=== PATIENT | male | born 1975 | race Caucasian/White ===

== ENCOUNTER 2021-12-24 13:53 | Inpatient (IN) | payer OTHER, SELFPAY ==
[2021-12-24] VITALS (7 sets, daily range): BP systolic 122–156; BP diastolic 61–93; PULSE 67–94; RESP 17–20; TEMP 36.6–36.9; O2SAT 94–100; BMI 32.2; BMI 33.0
--- NOTE | ~2021-12-24 | CT_ITS ---
EXAMINATION: CT brain wo con DATE: 12/24/2021 14:24 INDICATION: Left facial weakness. TECHNIQUE: Computed tomography (CT) of the head was performed without intravenous contrast. The mA wa s adjusted according to patient size. Iterative reconstruction technique was employed. The dose-lengt h product was 605.33 mGy-cm. COMPARISON: None FINDINGS: There is no intracranial hemorrhage, acute infarction, or abnormal intracranial mass lesion . The ventricles are normal in size. The orbits are normal. There is mild mucosal thickening in the p aranasal sinuses. The mastoid air cells are normal. IMPRESSION: 1. Normal brain. Reviewed, dictated and finalized at location A. CHIEF'S AIDE IMPRESSION: 1. Normal brain.
--- NOTE | 2021-12-24 14:49 | ED.NEUROSD ---
HPI - Neuro Symptoms/Deficit General Chief Complaint: Neuro Symptoms/Deficit Stated Complaint: Left sided face droop Time Seen by Provider: 12/24/21 14:39 Source: patient and family Mode of arrival: ambulatory Limitations: no limitations History of Present Illness HPI Narrative: Patient is 46 years old white male presented to the ED with sudden onset of tingling numbness of left side of the face, abnormal smile, unable to close left eyelid. Patient denies any similar symptoms anywhere else in his body. The above symptoms started last night. History of bipolar, patient denies any smoking, drinking or using drugs. Patient reports some meth use 1 week ago. Last Covid vaccine 6 months ago. Patient denies any fever, chills, nausea, vomiting, shortness of breath, chest pain, headache. Related Data Allergies Allergy/AdvReac Type Severity Reaction Status Date / Time NKDA Allergy Mild Uncoded 03/14/09 14:45 Review of Systems Review of Systems: CONSTITUTIONAL: Denies fever, chills, or sweats. EYES: Denies visual changes, redness, or discharge. ENT: Denies rhinorrhea, congestion, sore throat, or otalgia. CARDIOVASCULAR: Denies chest pain, palpitations, or edema. RESPIRATORY: Denies cough or dyspnea. GASTROINTESTINAL: Denies abdominal pain, nausea, vomiting, or diarrhea. GENITOURINARY: Denies dysuria or hematuria. SKIN: Denies rash or itching. MUSCULOSKELETAL: Denies back pain, joint pain, or myalgia. NEUROLOGIC: Denies headache, numbness, or weakness. PSYCHIATRIC: Denies anxiety or depression. Exam Narrative: General appearance: Well-developed, well-nourished Skin: Normal color Head: Normocephalic, nontraumatic Eyes: Clear conjunctiva ENT: Oropharynx normal, ears normal, nose normal Neck: Supple, nontender Chest and respiratory: Airway patent, no respiratory distress, no accessory muscle use Heart: Regular rate/rhythm Abdomen: Soft, nontender, no organomegaly, quiet bowel sounds Vascular: Normal peripheral pulses, normal capillary refill. Musculoskeletal: Normal range of motion, nontender back Neurologic: Alert and oriented ?3, left facial paralysis which include forehead and lower face, inability to smile on the left side, inability to close eyelids on the left side, loss of nasolabial fold on the left side Course Course Emergency Course: Stable Vital Signs Vital signs: Vital Signs Temperature 36.9 C 12/24/21 14:02 Pulse Rate 90 12/24/21 14:02 Respiratory Rate 18 12/24/21 14:02 Blood Pressure 125/82 12/24/21 14:02 Pulse Oximetry 97 12/24/21 14:02 Temperature 36.9 C 12/24/21 14:02 Pulse Rate 90 12/24/21 14:02 Respiratory Rate 18 12/24/21 14:02 Blood Pressure 125/82 12/24/21 14:02 Pulse Oximetry 97 12/24/21 14:02 MDM - Neuro Symptoms/Deficit MDM Narrative Medical decision making narrative: Patient presents with sudden onset of left upper and left lower facial paralysis consistent with dyspepsia. No other neurologic deficits anywhere else. Lab Data Result diagrams: 12/24/21 14:53 12/24/21 14:53 Labs: Lab Results 12/24/21 12/24/21 Range/Units 14:53 14:53 WBC 9.9 (4.5-10.0) K/mm3 RBC 5.42 (4.6-6.20) M/mm3 Hgb 17.4 (14.0-18.0) g/dL Hct 47.5 (42.0-52.0) % MCV 87.6 (80-100) fl MCH 32.1 (26-34) pg MCHC 36.6 H (32-36) g/dl RDW 12.1 (11.5-14.5) % Plt Count 226 (150-375) k/mm3 MPV 10.7 H (7.4-10.4) fl Immature Gran % (Auto) 0.4 (0-0.5) % Neut % (Auto) 74.9 H (45.5-73.1) % Lymph % (Auto) 15.8 L (18.3-44.2) % [place] % (Auto) 7.2 (2.6-8.5) % Eos % (Auto) 0.9 (0-4.4) % Baso % (Auto) 0.8 (0.2-1.2) % Lymph # (Auto) 1.5
[2021-12-24 14:59] LABS: Basophils Absolute Auto 0.1 K/mm3 (0.0-0.1); Basophils Percent Auto 0.8 % (0.2-1.2); Eosinophils Absolute Auto 0.1 K/mm3 (0-0.3); Eosinophils Percent Auto 0.9 % (0-4.4); Hematocrit 47.5 % (42.0-52.0); Hemoglobin 17.4 g/dL (14.0-18.0); Immature Granulocyte Absolute 0.04 K/mm3 (0.00-0.031); Immature Granulocyte Percent A 0.4 % (0-0.5); Lymphocytes Absolute Auto 1.56 K/mm3 (0.9-3.2); Lymphocytes Percent Auto 15.8 % (18.3-44.2); Mean Corpuscular HGB Conc 36.6 g/dl (32-36); Mean Corpuscular Hemoglobin 32.1 pg (26-34); Mean Corpuscular Volume 87.6 fl (80-100); Mean Platelet Volume 10.7 fl (7.4-10.4); Monocytes Absolute Auto 0.7 K/mm3 (0.1-0.6); Monocytes Percent Auto 7.2 % (2.6-8.5); Neutrophils Absolute Auto 7.4 K/mm3 (1.3-6.7); Neutrophils Percent Auto 74.9 % (45.5-73.1); Platelet Count Result 226 k/mm3 (150-375); Red Blood Count 5.42 M/mm3 (4.6-6.20); Red Cell Distribution Width 12.1 % (11.5-14.5); White Blood Count 9.9 K/mm3 (4.5-10.0)
[2021-12-24 15:08] LABS: Alanine Aminotransferase 29 U/L (4-50); Alkaline Phosphatase 116 U/L (38-126); Anion Gap 5 mmol/L (8-16); Aspartate Amino Transferase 26 U/L (17-59); Bilirubin,Total 0.5 mg/dL (0.2-1.3); Blood Urea Nitrogen 15 mg/dL (9-20); Calcium 9.2 mg/dL (8.4-10.2); Carbon Dioxide 23 mmol/L (22-30); Chloride 98 mmol/L (98-107); Estimated CRCL calculation 116 ml/min; Estimated Glomerular Filt Rate > 60; Glucose 374 mg/dL (65-110); Potassium 4.4 mmol/L (3.4-5.0); Sodium 126 mmol/L (137-145)
[2021-12-24] MEDS: SODIUM CHLORIDE 0.9% IV 1,000 ML 999 ML IV CONT (15:37)
--- NOTE | 2021-12-24 15:49 | PC.NURSE ---
pt states he has hx of dm in the past. also admits to taking crystal meth 7days ago.
--- NOTE | 2021-12-24 16:07 | PM.IMHP ---
H&P: HPI History of Present Illness Date/Time: 12/24/21 16:07 this is a 46-year-old male patient has a past medical history obesity and diabetes. The patient has had a gastric bypass and has been taken off of his medication. The patient stated that he has been controlling his blood sugars with diet only. The patient stated that his blood sugars were running in the 200s and he was taken off the medication that he used to be taking for diabetes. The patient came to the emergency room today with sudden onset of tingling of left side of the face abnormal spinal and unable to close the left eyelid. The patient denies any similar symptoms else in his body. He has no focal weakness. Symptoms started last night. Patient does have a history bipolar disorder. The patient does take medication bipolar disorder. The patient does use crystal methamphetamines in the last time the use illicit drugs was 1 week ago. The patient states that he has low testosterone and feels tired due to the low testosterone. Head CT was read as normal brain. Patient's sodium level was 126. Patient's glucose is noted to be 374 with the A1c of 10.5. The patient was found to be positive for COVID-19. Initially the patient was given IV fluid and started on prednisone. The patient is being admitted to observation status on the date of service of 12/24/2021. Chief Complaint: Left facial droop Review of Systems Review of Systems: All systems reviewed & are unremarkable except as noted in HPI and below Constitutional: Constitutional: Reports as per HPI and Reports no additional constitutional complaints Eyes: Eyes: Reports as per HPI and Reports no additional eye complaints ENT: Reports system reviewed and no additional complaints, except as documented and Reports Normal hearing present Cardiovascular: Cardiovascular: Reports no additional cardiovascular complaints Respiratory: Respiratory: Reports no additional respiratory complaints and Reports no additional respiratory complaints Gastrointestinal: Gastrointestinal: Reports as per HPI and Reports no additional gastrointestinal complaints Musculoskeletal: Musculoskeletal: Reports no additional musculoskeletal complaints Integumentary/Breasts: Skin/Breast: Reports system reviewed and no additional complaints, except as docu and Reports as per HPI Neurologic: Reports system reviewed and no additional complaints, except as documented, Reports as per HPI and Reports Normal hearing present Psychiatric: Psychiatric: Reports no additional psychiatric complaints and Reports as per HPI Endocrine: Endocrine: Reports no additional endocrine complaints Hematologic/Lymphatic: Hematologic/Lymphatic: Reports no additional hematologic/lymphatic complaints Allergic/Immunologic: Allergic/Immunologic: Reports no additional allergic/immunologic complaints [facility] Past Medical History Medical History (Updated 12/24/21 @ 18:50 by Radha Mena NP) Bipolar 1 disorder, depressed DM2 (diabetes mellitus, type 2) Low testosterone Surgical History Surgical History (Updated 12/24/21 @ 16:09 by Radha Mena NP) H/O arthroscopic knee surgery H/O hand surgery History of ankle surgery 2 ties and fusion Hx of gastric bypass Family History Family History Father Hypertension Acute myocardial infarction Cerebrovascular accident Alcoholism Social History Social History (Updated 12/24/21 @ 18:24 by Radha Mena NP) Social History: The patient tells me that his is currently living in [place] near [facility]. He has S 1 child. He lives with family. 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 He desires to have his mother as power hydroelectric plant structural engineer for healthcare. He currently is not employed. He denies any alcohol tobacco and marijuana. Code status full code Meds Home Medications and Allergies
[2021-12-24 16:23] LABS: Hemoglobin A1C 10.5 % (<5.7)
[2021-12-24 16:25] LABS: Thyroid Stimulating Hormone 0.528 uIU/mL (0.465-4.680)
[2021-12-24] MEDS: predniSONE 20 MG TABLET 60 MG PO (16:53)
[2021-12-24] MEDS: SODIUM CHLORIDE 0.9% IV 1,000 ML 200 ML IV CONT ×2 (16:54→23:37)
[2021-12-24 17:00] LABS: SARS-CoV-2 RNA PCR Positive
[2021-12-24 17:10] LABS: Glucose Point of Care 319 mg/dl (65-105)
[2021-12-24] MEDS: INSULIN ASPART (*BKC) 100 UNITS/ML SUB-Q (17:12)
[2021-12-24 19:18] LABS: Sodium Urine Random 61 meq/L
--- NOTE | 2021-12-24 20:14 | PC.NURSE ---
Report received from JENNIFER Tanner. Assumed care of patient at this time.
[2021-12-24 20:17] LABS: Anion Gap 4 mmol/L (8-16); Blood Urea Nitrogen 14 mg/dL (9-20); Calcium 9.1 mg/dL (8.4-10.2); Carbon Dioxide 24 mmol/L (22-30); Chloride 102 mmol/L (98-107); Estimated CRCL calculation 131 ml/min; Estimated Glomerular Filt Rate > 60; Glucose 358 mg/dL (65-110); Potassium 4.6 mmol/L (3.4-5.0); Sodium 130 mmol/L (137-145)
--- NOTE | 2021-12-24 21:55 | PC.NURSE ---
Patient stated IV pump was constantly beeping, IV okay, not tender and flushes easily, good blood return. New IV placed in right FA, 20gauge and IV fluids switched to that new IV upon request.
[2021-12-25] MEDS: ZOLPIDEM TARTRATE (*CRX) 5 MG TABLET PO ×2 (00:13→20:07)
[2021-12-25] MEDS: SODIUM CHLORIDE 0.9% IV 1,000 ML 200 ML IV CONT ×2 (04:45→12:13)
[2021-12-25 06:38] VITALS: BP 105/61; PULSE 62; RESP 16; TEMP 36.3; O2SAT 97
[2021-12-25 07:58] LABS: Basophils Absolute Auto 0.1 K/mm3 (0.0-0.1); Basophils Percent Auto 0.7 % (0.2-1.2); Eosinophils Absolute Auto 0.1 K/mm3 (0-0.3); Eosinophils Percent Auto 0.8 % (0-4.4); Hematocrit 45.5 % (42.0-52.0); Hemoglobin 15.7 g/dL (14.0-18.0); Immature Granulocyte Absolute 0.07 K/mm3 (0.00-0.031); Immature Granulocyte Percent A 0.7 % (0-0.5); Lymphocytes Absolute Auto 1.72 K/mm3 (0.9-3.2); Mean Corpuscular HGB Conc 34.5 g/dl (32-36); Mean Corpuscular Hemoglobin 31.1 pg (26-34); Mean Corpuscular Volume 90.1 fl (80-100); Mean Platelet Volume 10.5 fl (7.4-10.4); Monocytes Absolute Auto 0.7 K/mm3 (0.1-0.6); Monocytes Percent Auto 6.1 % (2.6-8.5); Neutrophils Absolute Auto 8.1 K/mm3 (1.3-6.7); Neutrophils Percent Auto 75.7 % (45.5-73.1); Platelet Count Result 211 k/mm3 (150-375); Red Blood Count 5.05 M/mm3 (4.6-6.20); Red Cell Distribution Width 11.9 % (11.5-14.5); White Blood Count 10.7 K/mm3 (4.5-10.0)
[2021-12-25 08:14] LABS: Lactic Acid Reflex 0.8 mmol/L (0.7-2.1)
[2021-12-25 08:25] LABS: Alanine Aminotransferase 24 U/L (4-50); Albumin Level 3.7 g/dL (3.5-5.1); Alkaline Phosphatase 88 U/L (38-126); Anion Gap 3 mmol/L (8-16); Aspartate Amino Transferase 19 U/L (17-59); Bilirubin,Total 0.6 mg/dL (0.2-1.3); Blood Urea Nitrogen 13 mg/dL (9-20); CRP 0.8 mg/dL (<1.0); Calcium 8.9 mg/dL (8.4-10.2); Carbon Dioxide 26 mmol/L (22-30); Chloride 103 mmol/L (98-107); Estimated CRCL calculation 157 ml/min; Estimated Glomerular Filt Rate > 60; Glucose 244 mg/dL (65-110); Lactate Dehydrogenase 357 U/L (313-618); Lipase 316 U/L (23-300); Sodium 132 mmol/L (137-145)
[2021-12-25 08:36] LABS: Glucose Point of Care 290 mg/dl (65-105)
[2021-12-25] MEDS: INSULIN ASPART (*BKC) 100 UNITS/ML SUB-Q ×3 (09:10→16:51)
[2021-12-25 09:51] VITALS: BP 120/72; PULSE 70; RESP 16; TEMP 36.3; O2SAT 94
--- NOTE | 2021-12-25 09:53 | PM.IMPN ---
Progress Note: A&P Assessment and Plan (1) Herron's palsy: Code(s): G51.0 - Herron's palsy Status: Acute Assessment and Plan: -CT brain normal -prednisone and valacyclovir -no other neurological deficits (2) DM2 (diabetes mellitus, type 2): Code(s): E11.9 - Type 2 diabetes mellitus without complications Status: Chronic Assessment and Plan: -Patient stated that he had diabetes in the past and had a gastric bypass and was taken off of his diabetic medications. -A1c is 10.5. His blood sugars have been in the 300s. -Now on prednisone this may increase his blood sugars even more. -sliding scale insulin. I started him on glyburide as he has had a gastric bypass. If I had started him on metformin it may decrease his B12 levels. Patient also had complained of a diabetic medication that upset his stomach. This is why he did not take any diabetic medication in the past. -perinatal educator and dietitian have been consulted. (3) Bipolar 1 disorder, depressed: Code(s): F31.9 - Bipolar disorder, unspecified Status: Chronic Assessment and Plan: -Continue with his home medications. -requesting psych consult, do not think this is neccessary inpatient but will try to set up follow up with [place] on discharge (4) COVID: Code(s): U07.1 - COVID-19 Status: Acute Assessment and Plan: -Contact and droplet isolation. The patient does not complain of any respiratory problems at this time. (5) Hyponatremia: Code(s): E87.1 - Hypo-osmolality and hyponatremia Status: Acute Assessment and Plan: -126 on arrival -Check urine sodium and osmolarity. -Avoid excessive IV fluids with the COVID. -close monitoring Subjective Date/time seen: 12/25/21 09:53 Interval history: 46-year-old male patient has a past medical history of diabetes, bipolar disorder, anxiety, depression, and methamphetamine abuse admitted for L sided facial droop thought to be [place] Palsy. Today patient feels okay, no change in his facial droop. Still cant shut his L eye unless he does it manually. No MIDDLETON, vision changes, numbness/tingling, extremity weakness. States has a hx of bipolar disorder and wants to talk to a psychiatrist regarding his medications. Last prescriber was in [place] many years ago and he last had a refill in [place] [facility] back. Thinks his medications are bringing him down too much and he feels more depressed. States he feels suicidal when he is high on meth and when he is coming down off of it. States he last used 1 week ago. No SI today. Review of Systems Review of Systems: All systems reviewed & are unremarkable except as noted in HPI and below Exam Narrative: General: No acute distress, non toxic appearing Eyes: PERRL, no scleral icterus, EOMI HEENT: NCAT, external ears normal, MMM Respiratory: No respiratory distress, Lungs CTA bilaterally, no wheezing Cardiovascular: RRR, no murmur Abdominal: Soft, nontender, non distended, no rebound or guarding Musculoskeletal: Moves all 4 extremities, no edema Neurological: A/Ox3, speech normal, left sided facial droop Skin: Warm, dry, no rashes Psychiatric: Normal affect, depressed mood Objective Data Vital Signs Vital Signs: Vital Signs - 24 hr 12/24/21 14:02 12/24/21 16:00 12/24/21 18:00 Temperature 98.5 F Pulse Rate 90 86 77 Respiratory Rate 18 18 18 Blood Pressure 125/82 124/85 156/93 H Pulse Oximetry 97 100 95 12/24/21 19:02 12/24/21 22:25 12/24/21 22:43 Temperature 98.0 F 98.0 F Pulse Rate 80 67 73 Respiratory Rate 18 17 20 Blood Pressure 140/72 122/61 122/61 Pulse Oximetry 94 97 95 12/24/21 23:11 12/25/21 06:38 12/25/21 09:51 Temperature 97.8 F 97.3 F L 97.3 F L Pulse Rate 94 62 70 Respiratory Rate 20 16 16 Blood Pressure 127/74 105/61 120/72 Pulse Oximetry 95 97 94 Intake/Output Intake/Output: Intake & Output 12/22/21 0
[2021-12-25] MEDS: ENOXAPARIN 40 MG/0.4 ML SYRINGE SUB-Q (09:57)
[2021-12-25] MEDS: predniSONE 20 MG TABLET 60 MG PO (09:57)
[2021-12-25] MEDS: glipiZIDE 5 MG TABLET PO (09:57)
[2021-12-25 11:54] LABS: Glucose Point of Care 227 mg/dl (65-105)
[2021-12-25 12:36] LABS: Free T4 Free Thyroxine Reflex 0.84 ng/dL (0.78-2.19)
--- NOTE | 2021-12-25 13:58 | PC.NURSE ---
pt brother called and asked about pts medications. pt voiced concern to brother. this nurse went over medications with brother and then pt. pt had medications for bipolar at home. brother stated he was previously in [place] and doesnt know if pt was taking his medications.
[2021-12-25] MEDS: valACYclovir HCL 500 MG TABLET 1000 MG PO ×2 (15:04→20:03)
[2021-12-25 15:37] VITALS: BP 115/70; PULSE 75; RESP 18; TEMP 36.4; O2SAT 95
[2021-12-25 16:34] LABS: Glucose Point of Care 354 mg/dl (65-105)
[2021-12-25 16:58] VITALS: BP 116/68; PULSE 70; RESP 18; TEMP 36.6; O2SAT 95
[2021-12-25 20:00] VITALS: BP 126/71; PULSE 77; RESP 18; TEMP 36.8; O2SAT 94
[2021-12-25 20:15] LABS: Glucose Point of Care 395 mg/dl (65-105)
[2021-12-25] MEDS: INSULIN ASPART (*BKC) 100 UNITS/ML 6 UNITS SUB-Q (20:53)
[2021-12-25] MEDS: INSULIN GLARGINE (*BKC) 100 UNITS/ML 20 UNITS SUB-Q (20:54)
[2021-12-25 22:00] VITALS: BP 116/60; PULSE 57; RESP 18; TEMP 36.3; O2SAT 97
[2021-12-26 03:53] VITALS: BP 104/62; PULSE 57; RESP 18; TEMP 36.6; O2SAT 97
[2021-12-26 04:36] VITALS: O2SAT 97
[2021-12-26] MEDS: SODIUM CHLORIDE 0.9% IV 1,000 ML 200 ML IV CONT (05:12)
[2021-12-26] MEDS: valACYclovir HCL 500 MG TABLET 1000 MG PO ×3 (05:13→20:47)
[2021-12-26 06:47] LABS: Total Triiodothyronine (T3) 0.91 NG/ML (0.97-1.69)
[2021-12-26 07:57] LABS: Glucose Point of Care 234 mg/dl (65-105)
[2021-12-26 08:00] VITALS: O2SAT 98
[2021-12-26 08:00] LABS: Basophils Absolute Auto 0.1 K/mm3 (0.0-0.1); Basophils Percent Auto 0.9 % (0.2-1.2); Eosinophils Absolute Auto 0.1 K/mm3 (0-0.3); Eosinophils Percent Auto 1.5 % (0-4.4); Hematocrit 42.9 % (42.0-52.0); Hemoglobin 15.1 g/dL (14.0-18.0); Immature Granulocyte Absolute 0.07 K/mm3 (0.00-0.031); Immature Granulocyte Percent A 0.8 % (0-0.5); Lymphocytes Absolute Auto 2.15 K/mm3 (0.9-3.2); Lymphocytes Percent Auto 25.1 % (18.3-44.2); Mean Corpuscular HGB Conc 35.2 g/dl (32-36); Mean Corpuscular Volume 88.1 fl (80-100); Mean Platelet Volume 10.5 fl (7.4-10.4); Monocytes Absolute Auto 0.7 K/mm3 (0.1-0.6); Monocytes Percent Auto 8.5 % (2.6-8.5); Neutrophils Absolute Auto 5.4 K/mm3 (1.3-6.7); Neutrophils Percent Auto 63.2 % (45.5-73.1); Platelet Count Result 213 k/mm3 (150-375); Red Blood Count 4.87 M/mm3 (4.6-6.20); Red Cell Distribution Width 11.9 % (11.5-14.5); White Blood Count 8.6 K/mm3 (4.5-10.0)
[2021-12-26 08:12] LABS: Anion Gap 6 mmol/L (8-16); Blood Urea Nitrogen 18 mg/dL (9-20); Calcium 8.8 mg/dL (8.4-10.2); Carbon Dioxide 27 mmol/L (22-30); Chloride 101 mmol/L (98-107); Estimated CRCL calculation 136 ml/min; Estimated Glomerular Filt Rate > 60; Glucose 236 mg/dL (65-110); Potassium 3.6 mmol/L (3.4-5.0); Sodium 134 mmol/L (137-145)
[2021-12-26] MEDS: INSULIN ASPART (*BKC) 100 UNITS/ML SUB-Q ×3 (09:20→17:06)
[2021-12-26] MEDS: ENOXAPARIN 40 MG/0.4 ML SYRINGE SUB-Q (09:21)
[2021-12-26] MEDS: predniSONE 20 MG TABLET 60 MG PO (09:21)
[2021-12-26] MEDS: glipiZIDE 5 MG TABLET PO (09:21)
[2021-12-26] MEDS: OXcarbazepine 300 MG TABLET PO ×2 (09:22→17:06)
[2021-12-26] MEDS: ARIPiprazole 5 MG TABLET PO (09:22)
[2021-12-26 10:21] VITALS: BP 115/75; PULSE 60; RESP 18; TEMP 36.2; O2SAT 94
--- NOTE | 2021-12-26 10:59 | PM.IMPN ---
Progress Note: A&P Assessment and Plan (1) Herron's palsy: Code(s): G51.0 - Herron's palsy Status: Acute Assessment and Plan: -CT brain normal -prednisone and valacyclovir -no other neurological deficits (2) DM2 (diabetes mellitus, type 2): Code(s): E11.9 - Type 2 diabetes mellitus without complications Status: Chronic Assessment and Plan: -Patient stated that he had diabetes in the past and had a gastric bypass and was taken off of his diabetic medications. -A1c is 10.5. His blood sugars have been in the 300s. -Now on prednisone this may increase his blood sugars even more. -sliding scale insulin. I started him on glyburide as he has had a gastric bypass. If I had started him on metformin it may decrease his B12 levels. Patient also had complained that Metformin upset his stomach and made him gain weight. This is why he did not take any diabetic medication in the past. -women's apparel salesperson and dietitian have been consulted. (3) Bipolar 1 disorder, depressed: Code(s): F31.9 - Bipolar disorder, unspecified Status: Chronic Assessment and Plan: -Continue with his home medications. -requesting psych consult, do not think this is neccessary inpatient -pt was provided contact information for [facility] and has already touched base with them. He is to see Dr. Lora outpatient as soon as he is discharged. -pt admits to depression but denies SI (4) COVID: Code(s): U07.1 - COVID-19 Status: Acute Assessment and Plan: -Contact and droplet isolation. The patient does not complain of any respiratory problems at this time. (5) Hyponatremia: Code(s): E87.1 - Hypo-osmolality and hyponatremia Status: Acute Assessment and Plan: -126 on arrival -Check urine sodium and osmolarity. -Avoid excessive IV fluids with the COVID diagnosis -close monitoring Subjective Date/time seen: 12/26/21 10:59 Interval history: 46-year-old male patient has a past medical history of diabetes, bipolar disorder, anxiety, depression, and methamphetamine abuse admitted for L sided facial droop thought to be [place] Palsy. Today patient feels okay, no change in his facial droop. Still cant shut his L eye unless he does it manually. No MIDDLETON, vision changes, numbness/tingling, extremity weakness. Got report this morning that patient was having suicidal ideations without a plan. I discussed this with him at length and he admits to major depression but does not have any thoughts of harming himself. He called [facility] and is going to see Dr. Lora outpatient to establish care when he is discharged. He thinks his bipolar medications are having the opposite effect and would like to have them switched. Review of Systems Review of Systems: All systems reviewed & are unremarkable except as noted in HPI and below Exam Narrative: General: No acute distress, non toxic appearing Eyes: PERRL, no scleral icterus, EOMI HEENT: NCAT, external ears normal, MMM Respiratory: No respiratory distress, Lungs CTA bilaterally, no wheezing Cardiovascular: RRR, no murmur Abdominal: Soft, nontender, non distended, no rebound or guarding Musculoskeletal: Moves all 4 extremities, no edema Neurological: A/Ox3, speech normal, left sided facial droop Skin: Warm, dry, no rashes Psychiatric: Normal affect, depressed mood Objective Data Vital Signs Vital Signs: Vital Signs - 24 hr 12/25/21 15:37 12/25/21 16:58 12/25/21 20:00 Temperature 97.5 F L 97.8 F 98.2 F Pulse Rate 75 70 77 Respiratory Rate 18 18 18 Blood Pressure 115/70 116/68 126/71 Pulse Oximetry 95 95 94 12/25/21 22:00 12/26/21 03:53 12/26/21 04:36 Temperature 97.4 F L 97.8 F Pulse Rate 57 L 57 L Respiratory Rate 18 18 Blood Pressure 116/60 104/62 Pulse Oximetry 97 97 97 12/26/21 08:00 12/26/21 10:21 Temperature 97.2 F L Pulse Rate 60 Respiratory Rate 18 Bl
[2021-12-26 12:16] LABS: Glucose Point of Care 207 mg/dl (65-105)
--- NOTE | 2021-12-26 13:03 | PCDIET ---
Consulted for diabetic diet. Pt reports that he has had previous nutrition education. Pt agreed to receive nutrition education for diabetes management. See nutritional teachings for further information.
[2021-12-26 16:00] VITALS: BP 116/80; PULSE 83; RESP 16; TEMP 36.5; O2SAT 96
[2021-12-26 16:42] LABS: Glucose Point of Care 392 mg/dl (65-105)
[2021-12-26] MEDS: INSULIN GLARGINE (*BKC) 100 UNITS/ML 20 UNITS SUB-Q (20:50)
[2021-12-26] MEDS: ZOLPIDEM TARTRATE (*CRX) 5 MG TABLET PO (20:50)
[2021-12-26 20:51] LABS: Glucose Point of Care 308 mg/dl (65-105)
[2021-12-26 21:44] VITALS: BP 108/62; PULSE 69; RESP 16; TEMP 36.8; O2SAT 93
[2021-12-27] VITALS: BP 119/69; PULSE 56; RESP 16; TEMP 37; O2SAT 96
--- NOTE | 2021-12-27 02:04 | PC.NURSE ---
Patient states IV came out and does not want another IV because he thinks he is being discharged in the morning.
[2021-12-27] MEDS: valACYclovir HCL 500 MG TABLET 1000 MG PO ×2 (05:05→14:01)
[2021-12-27 05:41] VITALS: BP 130/76; PULSE 60; RESP 16; TEMP 36.7; O2SAT 92
[2021-12-27 07:00] LABS: Basophils Absolute Auto 0.1 K/mm3 (0.0-0.1); Basophils Percent Auto 0.8 % (0.2-1.2); Eosinophils Absolute Auto 0.1 K/mm3 (0-0.3); Eosinophils Percent Auto 1.1 % (0-4.4); Hemoglobin 15.1 g/dL (14.0-18.0); Immature Granulocyte Absolute 0.05 K/mm3 (0.00-0.031); Immature Granulocyte Percent A 0.6 % (0-0.5); Lymphocytes Absolute Auto 2.16 K/mm3 (0.9-3.2); Lymphocytes Percent Auto 26.1 % (18.3-44.2); Mean Corpuscular HGB Conc 35.1 g/dl (32-36); Mean Corpuscular Hemoglobin 30.7 pg (26-34); Mean Corpuscular Volume 87.4 fl (80-100); Mean Platelet Volume 10.5 fl (7.4-10.4); Monocytes Absolute Auto 0.8 K/mm3 (0.1-0.6); Monocytes Percent Auto 9.7 % (2.6-8.5); Neutrophils Absolute Auto 5.1 K/mm3 (1.3-6.7); Neutrophils Percent Auto 61.7 % (45.5-73.1); Platelet Count Result 221 k/mm3 (150-375); Red Blood Count 4.92 M/mm3 (4.6-6.20); Red Cell Distribution Width 11.8 % (11.5-14.5); White Blood Count 8.3 K/mm3 (4.5-10.0)
[2021-12-27 07:05] LABS: Alanine Aminotransferase 25 U/L (4-50); Albumin Level 3.6 g/dL (3.5-5.1); Alkaline Phosphatase 76 U/L (38-126); Anion Gap 3 mmol/L (8-16); Aspartate Amino Transferase 18 U/L (17-59); Bilirubin,Total 0.5 mg/dL (0.2-1.3); Blood Urea Nitrogen 19 mg/dL (9-20); Calcium 8.8 mg/dL (8.4-10.2); Carbon Dioxide 28 mmol/L (22-30); Chloride 101 mmol/L (98-107); Estimated CRCL calculation 157 ml/min; Estimated Glomerular Filt Rate > 60; Glucose 236 mg/dL (65-110); Potassium 3.6 mmol/L (3.4-5.0); Sodium 132 mmol/L (137-145)
[2021-12-27 08:00] VITALS: BP 110/59; PULSE 68; RESP 16; TEMP 37.2; O2SAT 96
[2021-12-27 08:16] LABS: Glucose Point of Care 249 mg/dl (65-105)
[2021-12-27] MEDS: OXcarbazepine 300 MG TABLET PO (09:05)
[2021-12-27] MEDS: ARIPiprazole 5 MG TABLET PO (09:05)
[2021-12-27] MEDS: ENOXAPARIN 40 MG/0.4 ML SYRINGE SUB-Q (09:05)
[2021-12-27] MEDS: predniSONE 20 MG TABLET 60 MG PO (09:05)
[2021-12-27] MEDS: glipiZIDE 5 MG TABLET PO (09:05)
[2021-12-27] MEDS: INSULIN ASPART (*BKC) 100 UNITS/ML SUB-Q ×2 (09:06→12:22)
[2021-12-27 12:07] LABS: Glucose Point of Care 208 mg/dl (65-105)
--- NOTE | 2021-12-27 13:04 | PM.DS ---
DS: Admitting Diagnosis Discharge Date 12/27/2021 Admitting Diagnosis Left facial droop DS: Discharge Diagnosis Discharge Diagnosis (1) Herron's palsy: Code(s): G51.0 - Herron's palsy Status: Acute Assessment and Plan: -CT brain normal -pt to complete 10 days of prednisone and valacyclovir on dischrage -no other neurological deficits (2) DM2 (diabetes mellitus, type 2): Code(s): E11.9 - Type 2 diabetes mellitus without complications Status: Chronic Assessment and Plan: -Patient stated that he had diabetes in the past and had a gastric bypass and was taken off of his diabetic medications. -A1c is 10.5. His blood sugars have been in the 300s. -Now on prednisone this may increase his blood sugars even more. -pt is discharged with Lantus at night and oral glyburide as he has had a gastric bypass. -staff educator and dietitian have been consulted. (3) Bipolar 1 disorder, depressed: Code(s): F31.9 - Bipolar disorder, unspecified Status: Chronic Assessment and Plan: -Continue with his home medications. -pt can see chest nut provider afer his quaratine -pt was provided contact information for [facility] and has already touched base with them. He is to see Dr. Lora outpatient as soon as he is discharged. -pt admits to depression but denies SI (4) COVID: Code(s): U07.1 - COVID-19 Status: Acute Assessment and Plan: -quarantine time until Dec (5) Hyponatremia: Code(s): E87.1 - Hypo-osmolality and hyponatremia Status: Acute Assessment and Plan: -126 on arrival pt encouraged to drink plenty of water pt sodium is 132 on discharge. DS: Summary Hospital Course Hospital Course: 46-year-old male patient has a past medical history of diabetes, bipolar disorder, anxiety, depression, and methamphetamine abuse admitted for L sided facial droop thought to be [place] Palsy. Today patient feels okay, no change in his facial droop. Still cant shut his L eye unless he does it manually. No MIDDLETON, vision changes, numbness/tingling, extremity weakness. Got report this morning that patient was having suicidal ideations without a plan. I discussed this with him at length and he admits to major depression but does not have any thoughts of harming himself. He called [facility] and is going to see Dr. Lora outpatient to establish care when he is discharged. He thinks his bipolar medications are having the opposite effect and would like to have them switched he can discuss this at this apt. Pt is covid positive and must quarantine until jan 02. Time Spent with Patient Time attestation: Total time spent providing and/or coordinating discharge services:45 minutes on day of discharge Exam Narrative: General: No acute distress Respiratory: No respiratory distress, Lungs CTA bilaterally, no wheezing Cardiovascular: RRR, no murmur Abdominal: Soft, nontender, non distended, no rebound or guarding Musculoskeletal: Moves all 4 extremities, no edema Neurological: A/Ox3, speech normal, left sided facial droop Skin: Warm, dry, no rashes Psychiatric: Normal affect, depressed mood DS: Data Data Completed and Pending Labs on day of discharge: Labs from last 24 hours 12/27/21 12/27/21 12/27/21 12:02 07:36 06:12 WBC RBC Hgb Hct MCV MCH MCHC RDW Plt Count MPV Immature Gran % (Auto) Neut % (Auto) Lymph % (Auto) [place] % (Auto) Eos % (Auto) Baso % (Auto) Lymph # (Auto) [place] # (Auto) Eos # (Auto) Baso # (Auto) Abs Immat Gran (auto) Absolute Neuts (auto) Absolute Nucleated RBC Nucleated RBC % Sodium 132 L Potassium 3.6 Chloride 101 Carbon Dioxide 28 Anion Gap 3 L BUN 19 Creatinine 0.60 L Estim Creat Clear Calc 157 Estimated GFR > 60 Glucose 236 H POC Capillary Glucose 208 H 249 H Calcium 8
[2021-12-28 04:55] LABS: Osmolality, Urine 419 mOsm/kg (50-1200)
--- NOTE | 2021-12-28 12:19 | PCCDE ---
Consult received 12/26; pt was discharged 12/27 before consult was completed. Called phone number listed in chart but pt's mother answered and said he wasn't there and his phone was acting up. She took my number and said she would have him call back.
== END 2021-12-27 14:07 | disposition home or self-care (01) | DRG 48 ==
LOC: ANHED 16:40 → ANH3MEDSUR 20:25
PROVIDERS: Nurse Practitioner; Physician Assistant; Admitting Provider Internal Medicine; Emergency Provider Emergency Medicine; Visit Provider Physician Assistant
DX: G51.0 Bell's palsy (principal); U07.1 COVID-19; R29.702 NIHSS score 2; E11.9 Type 2 diabetes mellitus without complications; E87.1 Hypo-osmolality and hyponatremia; F15.10 Other stimulant abuse, uncomplicated; F41.9 Anxiety disorder, unspecified; F31.9 Bipolar disorder, unspecified; E66.9 Obesity, unspecified; Z68.33 Body mass index [BMI] 33.0-33.9, adult; Z98.84 Bariatric surgery status
CPT/HCPCS: 36415; 70450; 80048; 80053; 82728; 82948; 83036; 83605; 83615; 83690; 83735; 83935; 84300; 84439; 84443; 84480; 85025; 86140; 96360; 96361; 96372; 99285; A9270; C9803; G0378; G0379; J1650; J1815; J7030; J7512; U0003; U0005

== ENCOUNTER 2022-10-20 08:25 | Emergency (ER) | payer SELFPAY ==
[2022-10-20 08:43] VITALS: BP 125/79; TEMP 36.4
--- NOTE | 2022-10-20 09:11 | ED.MALEGU ---
HPI - Male Genitourinary General Chief complaint: Urogenital-Male Stated complaint: SWOLLEN PENIS Time Seen by Provider: 10/20/22 08:54 History of Present Illness HPI Narrative: Patient is a 47-year-old male here for evaluation of penile irritation for the past 2 months. Patient states that 2 months ago he used a condom that was put on backwards , and he believes that some of the condom is stuck on his penis. Patient states that he has had intermittent inflammation since then. He was seen in the ED and was treated for an unspecified infection and was given a topical cream with good relief of his symptoms, but states that yesterday while [place] was [place] an airplane his symptoms worsened which prompted his ED evaluation today. He denies any fevers, chills, dysuria, urgency or frequency. No known exposures to STIs, new medications, soaps or detergents. Related Data Home Medications Medication Instructions Recorded Confirmed aripiprazole 5 mg tablet 5 mg PO DAILY 12/25/21 12/25/21 hydroxyzine HCl 25 mg tablet 25 mg PO TID PRN Allergy Symptoms 12/25/21 12/25/21 oxcarbazepine 300 mg tablet 300 mg PO BID 12/25/21 12/25/21 Allergies Allergy/AdvReac Type Severity Reaction Status Date / Time ketamine AdvReac Agitated Verified 12/24/21 16:31 Review of Systems Review of Systems: Gen.: Denies fevers or chills Eyes: Denies eye pain or visual change ENT: Denies congestion Respiratory: Denies shortness of breath or cough CV: Denies chest pain or palpitations GI: Denies abdominal pain nausea, emesis or diarrhea reports penile irritation. Denies burning, urgency, frequency or hematuria Musculoskeletal: Denies back pain or muscle pain Neuro: Denies numbness, tingling, weakness or focal weakness Skin: Denies rash Except as documented, all other systems reviewed and negative PMF Past Medical History Medical History Bipolar 1 disorder, depressed DM2 (diabetes mellitus, type 2) Low testosterone Surgical History Surgical History H/O arthroscopic knee surgery H/O hand surgery History of ankle surgery 2 ties and fusion Hx of gastric bypass Family History Family History Father Hypertension Acute myocardial infarction Cerebrovascular accident Alcoholism Social History Social History (Updated 12/24/21 @ 18:24 by Radha Mena NP) Social History: The patient tells me that his is currently living in [place] near [facility]. He has S 1 child. He lives with family. 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 He desires to have his mother as power staff attorney for healthcare. He currently is not employed. He denies any alcohol tobacco and marijuana. Code status full code Smoking status: Never smoker Second hand tobacco smoke exposure: Yes Alcohol intake: former Drinks per week: 20 Substance use: current Substance use type: marijuana, crack/cocaine, methamphetamine and other Other substance usage details: Cocaine Spiritual care concerns: No Exam Narrative: Gen: Alert, oriented, no acute distress Eyes: EOMI, no icterus Pulm: Respirations even and unlabored, symmetric thorax expansion, no audible stridor or visible cyanosis CV: Regular rate per telemetry GI: No distension, no voluntary/involuntary guarding : Uncircumcised penis, no obvious foreign body noted to outside of skin, small abrasions noted along penile shaft with no discharge, no ulcerations. No discharge from the urethra. Neuro: AOx4, moves all extremities without apparent difficulty or weakness, follows commands Skin: No jaundice, no visible bruising, rashes, lesions or wounds on exposed skin Psych: Normal mood/affect, insight/judgement good, adequate fund of knowledge, recent/remote memory intact Cour
[2022-10-20] MEDS: IBUPROFEN 400 MG TABLET 800 MG PO (10:26)
[2022-10-20 10:33] LABS: Appearance Urine Clear (Clear); Bilirubin Urine Negative (Negative); Blood Urine Negative (Negative); Color Urine Yellow (Yellow); Glucose Urine UA 3+ mg/dL (Negative); Ketones Urine Trace mg/dL (Negative); Leukocyte Esterase Ur Negative LEU/UL (Negative); Nitrate Urine Negative (Negative); Protein Urine Negative (Negative); Specific Grav Ur 1.015 (1.001-1.035)
[2022-10-20 10:34] LABS: Add Urine Microscopic? YES
[2022-10-20 10:35] LABS: Squamous Epithelial Cell Urine Few /hpf (Few); WBC Urine 0-3 /hpf
--- NOTE | 2022-10-20 11:08 | PC.NURSE ---
1100 Assumed pt care from Mariaa Guerra RN
[2022-10-20 11:47] VITALS: BP 122/84; PULSE 91; RESP 16; O2SAT 96
== END 2022-10-20 11:50 | disposition home or self-care (01) ==
PROVIDERS: Emergency Provider Physician Assistant
DX: N48.89 Other specified disorders of penis (principal); F31.9 Bipolar disorder, unspecified; E11.9 Type 2 diabetes mellitus without complications; Z98.84 Bariatric surgery status; Z79.4 Long term (current) use of insulin; Z79.84 Long term (current) use of oral hypoglycemic drugs
CPT/HCPCS: 81001; 87491; 87591; 87661; 99283; A9270

== ENCOUNTER 2023-12-25 13:01 | Emergency (ER) | payer MEDICAID, SELFPAY ==
[2023-12-25 13:19] VITALS: BP 173/93; PULSE 106; RESP 18; TEMP 36.8; O2SAT 99
--- NOTE | 2023-12-25 13:27 | ED.MALEGU ---
HPI - Male Genitourinary General Chief complaint: Urogenital-Male <JAKI Gilbert Last Filed: 12/25/23 13:46> Stated complaint: penis infection <JAKI Gilbert Last Filed: 12/25/23 13:46> Time Seen by Provider: 12/25/23 13:26 <JAKI Gilbert Last Filed: 12/25/23 13:46> Focused HPI: Patient is a 48 y/o uncircumcised male who presents to the ED with c/o pain to his penis. Patient reports concern for infection over the last 1 year. He c/o tearing of foreskin, hardened ring around shaft, white discharge around tip of penis, itching to tip of penis. He also reports pain around penile shaft with erections. Reports urinary frequency, denies dysuria, hematuria, pain or swelling in testicles. No concern for STDs at this time, tested 2 mos ago and negative. Patient reports hx of diabetes and states he has not been on any medications for last 6 months d/t insurance issues. He does not currently have a PCP. Does not routinely check his BGs. GENERAL: Well-appearing, well-nourished, and in no acute distress. HEAD: Normocephalic, atraumatic. CHEST: Clear to auscultation. ?No respiratory distress. HEART: Regular rate and rhythm.? NEURO: ?Alert and oriented x3. Patient screened in triage and initial orders placed.? ?Additional care and disposition to be based upon?diagnostic testing and treatment. <JAKI Gilbert Last Filed: 12/25/23 13:46> Source: patient <JAKI Gilbert Last Filed: 12/25/23 13:46> Mode of arrival: ambulatory <JAKI Gilbert Last Filed: 12/25/23 13:46> Limitations: no limitations <JAKI Gilbert Last Filed: 12/25/23 13:46> History of Present Illness HPI Narrative: PATIENT PRESENTS WITH IRRITATION AND STRICTURE OF THE FORESKIN MAINLY DURING ERECTION. THIS BEEN GOING FOR YEARS. ALSO COMPLAINING OF URGENCY TO URINATE FOR YEARS, WAS SEEN BILATERAL PHYSICIAN IN THE PAST FOR THE SAME PROBLEM WITHOUT SIGNIFICANT IMPROVEMENT. <Gabby Gordon MD - Last Filed: 12/25/23 17:44> Related Data Home medications: Home Medications Medication Instructions Recorded Confirmed aripiprazole 5 mg tablet 5 mg PO DAILY 12/25/21 12/25/21 hydroxyzine HCl 25 mg tablet 25 mg PO TID PRN Allergy Symptoms 12/25/21 12/25/21 oxcarbazepine 300 mg tablet 300 mg PO BID 12/25/21 12/25/21 <JAKI Gilbert Last Filed: 12/25/23 13:46> Allergies/Adverse reactions: Allergies Allergy/AdvReac Type Severity Reaction Status Date / Time ketamine AdvReac Agitated Verified 12/24/21 16:31 <Lily Pino PA-C - Last Filed: 12/25/23 13:46> Review of Systems Review of Systems: All systems reviewed & are unremarkable except as noted in HPI and below <Gabby Gordon MD - Last Filed: 12/25/23 17:44> PMFSH Past Medical History Medical History: Medical History Bipolar 1 disorder, depressed DM2 (diabetes mellitus, type 2) Low testosterone <Lily Pino PA-C - Last Filed: 12/25/23 13:46> Surgical History Surgical History: Surgical History H/O arthroscopic knee surgery H/O hand surgery History of ankle surgery 2 ties and fusion Hx of gastric bypass <JAKI Gilbert Last Filed: 12/25/23 13:46> Family History Family History: Family History Father Hypertension Acute myocardial infarction Cerebrovascular accident Alcoholism <JAKI Gilbert Last Filed: 12/25/23 13:46> Social History Social History: Social History Social History: The patient tells me that his is currently living in [place] near [facility]. He has S 1 child. He lives with family. 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
[2023-12-25 13:44] LABS: Basophils Absolute Auto 0.1 K/mm3 (0.0-0.1); Basophils Percent Auto 0.9 % (0.2-1.2); Eosinophils Absolute Auto 0.1 K/mm3 (0-0.3); Eosinophils Percent Auto 0.8 % (0-4.4); Hematocrit 46.8 % (42.0-52.0); Hemoglobin 15.8 g/dL (14.0-18.0); Immature Granulocyte Absolute 0.03 K/mm3 (0.00-0.031); Immature Granulocyte Percent A 0.4 % (0-0.5); Lymphocytes Absolute Auto 1.42 K/mm3 (0.9-3.2); Mean Corpuscular HGB Conc 33.8 g/dl (32-36); Mean Corpuscular Hemoglobin 30.1 pg (26-34); Mean Corpuscular Volume 89.1 fl (80-100); Mean Platelet Volume 10.6 fl (7.4-10.4); Monocytes Absolute Auto 0.5 K/mm3 (0.1-0.6); Neutrophils Absolute Auto 5.8 K/mm3 (1.3-6.7); Neutrophils Percent Auto 73.9 % (45.5-73.1); Platelet Count Result 232 k/mm3 (150-375); Red Blood Count 5.25 M/mm3 (4.6-6.20); Red Cell Distribution Width 12.5 % (11.5-14.5); White Blood Count 7.9 K/mm3 (4.5-10.0)
[2023-12-25 13:58] LABS: Alanine Aminotransferase 27 U/L (6-50); Albumin Level 4.3 g/dL (3.5-5.1); Alkaline Phosphatase 90 U/L (38-126); Anion Gap 12 mmol/L (8-16); Aspartate Amino Transferase 27 U/L (17-59); Bilirubin,Total 0.7 mg/dL (0.2-1.3); Blood Urea Nitrogen 13 mg/dL (9-20); Carbon Dioxide 25 mmol/L (22-30); Chloride 98 mmol/L (98-107); Estimated CRCL calculation 130 ml/min; Estimated Glomerular Filt Rate > 60; Glucose 385 mg/dL (65-110); Potassium 4.3 mmol/L (3.4-5.0); Sodium 135 mmol/L (137-145)
--- NOTE | 2023-12-25 14:46 | PC.NURSE ---
pt remains unable to provide ua specimen
[2023-12-25 14:56] LABS: Hemoglobin A1C 13.2 % (<5.7)
--- NOTE | 2023-12-25 16:43 | PC.NURSE ---
pt states he still cannot void. water provided. edp just now at bedside.
[2023-12-25 18:08] LABS: Glucose Point of Care 296 mg/dl (65-105)
== END 2023-12-25 18:06 | disposition home or self-care (01) ==
PROVIDERS: Physician Assistant; Emergency Provider Emergency Medicine
DX: N48.1 Balanitis (principal); N47.3 Deficient foreskin; E11.65 Type 2 diabetes mellitus with hyperglycemia; E11.9 Type 2 diabetes mellitus without complications; Z79.899 Other long term (current) drug therapy
CPT/HCPCS: 36415; 80053; 82948; 83036; 85025; 99283